=== PATIENT | male | born 1930 | race Caucasian/White ===

== ENCOUNTER 2016-08-20 18:20 | Inpatient (IN) | payer MEDICARE, BC ==
[~2016-08-20] VITALS: Ht 177.8 cm; Wt 62.6 kg
[~2016-08-20 18:20] MED LIST: LIDOCAINE 2% SYR 5 ML IV ONE; PROPOFOL 20 ML PER ML IV ONE
[2016-08-20] MEDS ORDERED: SODIUM CHLORIDE 0.9% 1,000 ML ONE (20:23)
[2016-08-20] MEDS ORDERED: ONDANSETRON 4 MG VIAL ONE (20:23)
[2016-08-20] MEDS ORDERED: PROMETHAZINE 25 MG/ML VIAL ONE (21:54)
[2016-08-20] MEDS ORDERED: SODIUM CHLORIDE 0.9% 50 ML IV ONE (21:55)
[2016-08-20] MEDS ORDERED: PANTOPRAZOLE 40 MG VIAL IV ONE (22:09)
[2016-08-20] MEDS ORDERED: SODIUM CHLORIDE 0.9% 100 ML IV ONE (22:10)
[2016-08-21] VITALS (7 sets, daily range): BP systolic 127–162; RESP 15–16; TEMP 97.7–98.3; Ht 177.8 cm; Wt 62.6 kg
[2016-08-21] MEDS ORDERED: DILAUDID 1 MG/ML AMP ONE (02:21)
[2016-08-21] MEDS ORDERED: ONDANSETRON 4 MG VIAL ONE (02:21)
[2016-08-21] MEDS: LACT RINGERS 1,000 ML IV SCH ×3 (04:04→23:27)
[2016-08-21] MEDS ORDERED: MISSING DOSE XX ONE (07:35)
[2016-08-21] MEDS: FAMOTIDINE 20 MG INJ IV SCH ×2 (07:59→20:18)
[2016-08-21] MEDS ORDERED: CHLORASEPTIC 180 ML BTL PO PRN (09:50)
[2016-08-21] MEDS: ONDANSETRON 4 MG VIAL IV PUSH PRN (18:06)
[2016-08-21] MEDS: MORPHINE 2 MG/ML SYR IV PRN (22:08)
[2016-08-22] VITALS (7 sets, daily range): BP systolic 121–144; RESP 12–18; TEMP 97.6–99
[2016-08-22] MEDS: FAMOTIDINE 20 MG INJ IV SCH ×2 (08:16→21:04)
[2016-08-22] MEDS: LACT RINGERS 1,000 ML IV SCH ×2 (08:19→16:34)
[2016-08-22] MEDS: MORPHINE 2 MG/ML SYR IV PRN ×2 (09:37→14:06)
[2016-08-23] VITALS (10 sets, daily range): BP systolic 137–171; RESP 11–20; TEMP 97.3–98.7
[2016-08-23] MEDS: ONDANSETRON 4 MG VIAL IV PUSH PRN ×2 (01:53→10:16)
[2016-08-23] MEDS: LACT RINGERS 1,000 ML IV SCH ×2 (01:59→19:05)
[2016-08-23] MEDS: FAMOTIDINE 20 MG INJ IV SCH ×2 (09:35→21:04)
[2016-08-23] MEDS ORDERED: LIDOCAINE 1% BUFFERED 1 ML SYR INTRADERM PRN (11:00)
[2016-08-23] MEDS ORDERED: LACT RINGERS 1,000 ML IV SCH (11:00)
[2016-08-24] VITALS (7 sets, daily range): BP systolic 126–159; RESP 18–20; TEMP 97.5–100.5
[2016-08-24] MEDS ORDERED: ACETAMINOPHEN 650 MG/20.3 ML UDC PO PRN (01:40)
[2016-08-24] MEDS: LACT RINGERS 1,000 ML IV SCH ×2 (04:08→13:59)
[2016-08-24] MEDS: FAMOTIDINE 20 MG INJ IV SCH ×2 (07:55→20:08)
[2016-08-24] MEDS: ONDANSETRON 4 MG VIAL IV PUSH PRN (12:31)
[2016-08-25] VITALS (8 sets, daily range): BP systolic 129–149; RESP 16–18; TEMP 98–98.7
[2016-08-25] MEDS: LACT RINGERS 1,000 ML IV SCH (00:44)
[2016-08-25] MEDS: FAMOTIDINE 20 MG INJ IV SCH ×2 (08:21→20:18)
[2016-08-25] MEDS: NEB-ALBUTEROL 2.5 MG/3 ML INH SCH ×3 (09:35→22:54)
[2016-08-25] MEDS: LEVOFLOXACIN 500 MG/100 ML 100 ML IV SCH (10:21)
[2016-08-26 03:32] VITALS: BP_SYST 154; RESP 18; TEMP 97.8
[2016-08-26 07:21] VITALS: BP_SYST 152; RESP 16; TEMP 98.5
[2016-08-26] MEDS: NEB-ALBUTEROL 2.5 MG/3 ML INH SCH ×4 (08:09→23:10)
[2016-08-26] MEDS: FAMOTIDINE 20 MG INJ IV SCH (08:37)
[2016-08-26] MEDS: LEVOFLOXACIN 500 MG/100 ML 100 ML IV SCH (08:37)
[2016-08-26] MEDS: LEVOFLOXACIN 500 MG TAB PO SCH (09:00)
[2016-08-26] MEDS: FAMOTIDINE 20 MG TAB PO SCH ×2 (09:00→20:38)
[2016-08-26 10:43] VITALS: BP_SYST 138; RESP 16; TEMP 98.5
[2016-08-26 15:18] VITALS: BP_SYST 171; RESP 18; TEMP 98.3
[2016-08-26 19:41] VITALS: BP_SYST 149; RESP 18; TEMP 97.4
[2016-08-26 23:25] VITALS: BP_SYST 138; RESP 16; TEMP 98.2
[2016-08-26] MEDS ORDERED: SALINE FLUSH 10 ML FLUSH PRN (23:40)
[2016-08-27 03:41] VITALS: BP_SYST 138; RESP 16; TEMP 97.4
[2016-08-27 07:13] VITALS: BP_SYST 140; RESP 18; TEMP 97.9
[2016-08-27] MEDS: NEB-ALBUTEROL 2.5 MG/3 ML INH SCH (07:19)
[2016-08-27] MEDS ORDERED: SALINE FLUSH 10 ML FLUSH SCH (08:00)
[2016-08-27] MEDS: FAMOTIDINE 20 MG TAB PO SCH (08:32)
[2016-08-27] MEDS: LEVOFLOXACIN 500 MG TAB PO SCH (08:32)
[2016-08-27 08:40] VITALS: BP_SYST 140; RESP 18; TEMP 97.9
== END 2016-08-27 11:12 | disposition home or self-care (01) | DRG 194 ==
LOC: ER 18:20 → EMR 18:21 → 5THE 08-21 03:10 → OBSVTOIN 08-22 12:38
PROVIDERS: ADMIT Surgery; ATTEND Surgery
PROC: 0DJ08ZZ Inspection of Upper Intestinal Tract, Via Natural or Artificial Opening Endoscopic (ICD-10-PCS; principal; 2016-08-23 11:05)
DX: J18.9 Pneumonia, unspecified organism (principal); K44.0 Diaphragmatic hernia with obstruction, without gangrene; J44.9 Chronic obstructive pulmonary disease, unspecified; Z95.1 Presence of aortocoronary bypass graft; R10.9 Unspecified abdominal pain; R11.2 Nausea with vomiting, unspecified; I25.10 Atherosclerotic heart disease of native coronary artery without angina pectoris; I10 Essential (primary) hypertension; Z86.73 Personal history of transient ischemic attack (TIA), and cerebral infarction without residual deficits; E78.00 Pure hypercholesterolemia, unspecified; Z72.0 Tobacco use; Z79.82 Long term (current) use of aspirin
CPT/HCPCS: 36415; 71010; 74176; 80048; 80053; 81001; 82140; 82271; 83690; 85025; 85610; 85730; 94640; 94799; 96361; 96374; 96375; 96376